=== PATIENT | female | born 1990 | race African-American/Black ===

== ENCOUNTER 2017-09-14 05:37 | Emergency (ER) | payer BC ==
[~2017-09-14] VITALS: Ht 152.4 cm; Wt 122.5 kg
[2017-09-14 06:22] LABS: Basophils # (auto) 0 uL; Basophils % (auto) 0.2 % (0.0-2.0); Eosinophils # (auto) 0.1 uL; Eosinophils % (auto) 0.9 % (0.0-7.0); Hematocrit 42.2 % (36.0-46.0); Hemoglobin 14.2 g/dL (12.2-16.2); Lymphocytes # (auto) 0.6 uL; Lymphocytes % (auto) 8.6 % (10.0-50.0); Mean Corpuscular Hemoglobin 29.1 pg (28.0-32.0); Mean Corpuscular Hgb Conc. 33.7 g/dL (32.0-36.0); Mean Corpuscular Volume 86.4 fL (80.0-100.0); Mean Platelet Volume 7.7 fL (6.9-10.8); Monocytes # (auto) 0.4 uL; Monocytes % (auto) 6.2 % (0.0-12.0); Neutrophils # (auto) 5.7 uL; Neutrophils % (auto) 84.1 % (37.0-80.0); Platelet Count (auto) 349 10^3/uL (140-450); Red Cell Distribution Width 13.7 % (11.8-14.3); White Blood Cell 6.8 10^3/uL (4.4-10.8)
[2017-09-14 06:41] LABS: Potassium 3.7 mmol/L (3.5-5.1)
[2017-09-14 06:48] LABS: Albumin 4.1 g/dL (3.4-5.0); BUN/Creatinine Ratio 19.1; Magnesium 2.1 mg/dL (1.6-2.6)
[2017-09-14 06:51] LABS: Bilirubin, Total 0.3 mg/dL (0.2-1.0); Total Protein 8.7 g/dL (6.4-8.2)
[2017-09-14 07:23] LABS: Urine Bilirubin Negative (Negative); Urine Blood 2+ /uL (Negative); Urine Color Yellow (Yellow); Urine Glucose Normal (Normal); Urine Ketone Negative (Negative); Urine Mucus FEW (None Seen); Urine Nitrite Negative (Negative); Urine RBC 2 /hpf (0 - 4); Urine Squamous Epithelial Cell MOD /hpf (<5); Urine Urobilinogen Normal (Negative); Urine pH 5.5 (5.0-8.0)
[2017-09-14] MEDS ORDERED: SODIUM CHLORIDE 0.9% 1,000 ML IVB ONE (07:48)
[2017-09-14] MEDS ORDERED: PROMETHAZINE HCL 25 MG/ML 1ML IV PRN (08:00)
[2017-09-14] MEDS ORDERED: FAMOTIDINE 20 MG TAB PO ONE (08:00)
[2017-09-14 11:22] VITALS: BP 127/75
== END 2017-09-14 10:55 | disposition home or self-care (01) ==
LOC: ER 05:40
DX: K52.9 Noninfective gastroenteritis and colitis, unspecified (principal)
CPT/HCPCS: 36415; 80053; 81001; 81025; 82150; 83690; 83735; 85025; 96361; 96374; 99284; J2550; J7030

== ENCOUNTER 2017-12-16 12:50 | Emergency (ER) | payer BC ==
[~2017-12-16] VITALS: Ht 152.4 cm; Wt 108.9 kg
[2017-12-16 13:09] VITALS: BP 137/73
[2017-12-16] MEDS ORDERED: cefTRIAXone SOD 1,000 MG VL IM ONE (14:00)
== END 2017-12-16 14:27 | disposition home or self-care (01) ==
LOC: ER 12:50
DX: H66.93 Otitis media, unspecified, bilateral (principal); J03.90 Acute tonsillitis, unspecified; T50.905A Adverse effect of unspecified drugs, medicaments and biological substances, initial encounter; Y92.89 Other specified places as the place of occurrence of the external cause
CPT/HCPCS: 96372; 99283; J0696